=== PATIENT | male | born 2000 | race Caucasian/White ===

== ENCOUNTER 2023-12-07 08:59 | Outpatient (CLI) | payer BC, SELFPAY ==
--- NOTE | ~2023-12-07 | US_ITS ---
Limited Abdominal Sonogram: Real-time sonographic imaging of the right upper quadrant was performed. Clinical History: Abnormal liver transaminase levels Findings: The liver appears echogenic, with no evidence of mass lesion or bile duct dilatation. Main portal vein demonstrates normal direction of flow. The gallbladder is well distended, and appears no rmal with no evidence of gallstone or wall thickening. The common bile duct measures 4 mm. The visua lized pancreas, aorta, and IVC are unremarkable. Impression: Diffuse fatty infiltration of the liver. Reviewed, dictated and finalized at location M. Impression: Diffuse fatty infiltration of the liver.
== END 2023-12-07 09:00 | disposition home or self-care (01) ==
LOC: GOSHIMG 09:01
PROVIDERS: PCP Pediatrics; Visit Provider Nurse Practitioner Family
DX: R74.01 Elevation of levels of liver transaminase levels (principal); K76.0 Fatty (change of) liver, not elsewhere classified
CPT/HCPCS: 76705

== ENCOUNTER 2025-02-10 00:08 | Observation (INO) | payer OTHER, SELFPAY ==
[2025-02-10] VITALS (22 sets, daily range): BP systolic 118–157; BP diastolic 59–89; PULSE 85–105; RESP 14–25; TEMP 36.3–37; O2SAT 93–100; BMI 31.4
--- NOTE | ~2025-02-10 | CT_ITS ---
CT abdomen pelvis w con Clinical History: RLQ pain . Comparison: None Technique: Axial images lung bases to symphysis pubis 100 mL Omnipaque 350 Coronal, sagittal reformats CT images acquired with automatic exposure control for dose reduction DLP: 879 mGy-cm Findings: Lung bases: Clear. Visualized heart and pericardium: Unremarkable. Liver: Steatosis. Gallbladder: Unremarkable. Spleen: Unremarkable. Pancreas: Unremarkable. Adrenal glands: Unremarkable. Kidneys: Right kidney- No hydronephrosis. No renal stones. Left kidney- No hydronephrosis. No renal stones. Distal esophagus/stomach: Unremarkable. Small bowel loops: Normal caliber and wall thickness. Colon: Normal caliber and wall thickness. Appendix mildly prominent with minimal surrounding inflammation. Proximal segment submucosal fatty deposition. Nodes: No enlarged nodes. Peritoneum: No ascites. No free air. Urinary bladder: Unremarkable. Prostate: Unremarkable. Bones: No acute bony abnormality. Soft tissues: Unremarkable. Aorta: No aneurysm or dissection. IVC: Unremarkable. Main portal vein/SMV/splenic vein: Patent. IMPRESSION: 1. Suspicious for early acute appendicitis. Reviewed, dictated and finalized at location R. [facility] [employer]GER
--- OUTSIDE RECORDS SUMMARY | 2025-02-10 00:11 | XMS_ITS | Clinical Summary ---
Author Organization [facility] Care Team Providers Care Worm Sorter Name Role Phone Unavailable Primary Care Provider Unavailabl e Social History Tobacco Use Types Packs/Day Years Used Date Smoking Tobacco: Never Assessed Sex and Gender Information Value Date Recorded Sex Assigned at Not on file Legal Sex Male 2:58 PM [employer] Gender Identity Not on file Sexual Orientation Not on file Plan of Treatment Health Maintenance Due Date Last Done Comments Hepatitis C Virus (HCV) Screening 2002 Hepatitis B Immunization (1 of 3 - 19+ 3-dose series) 2021 Influenza Immunization (#1) 10/24/202411/23, 01/04/2019, 11/26/2016 SARS-COV-2 Immunization ( season) 2024 02/07/2021, 06/02/2020, 05/11/2020 Respiratory Syncytial Virus (RSV) Immunization (Adult) (1 - 1-dose 75+ series) 2077 Pneumococcal Immunization Combined Completed 12/08/2003, 2002, 2002, Additional history exists Measles Mumps Rubella (MMR) Immunization Discontinued 06/12/2006, 06/02/2003 Varicella Immunization Discontinued 06/12/2006, 2003 Hepatitis A Immunization Discontinued 03/15/2010, 06/23 DTaP/Tdap/Td Immunization Discontinued 2013, 07/02/2007, 09/18/2003, Additional history exists TdaP Immunization Completed 08/11/2013 Human Papillomavirus (HPV) Immunization Completed 02/27/2014, 10/25/2013, 08/11/2013 Meningococcal Immunization (ACWY) Completed 09/23/2018, 08/11/2013 Meningococcal B Immunization Completed 08/22/2019, 09/23/2018 Rotavirus Immunization Aged Out No lo nger eligible based on patient's age to complete this topic
--- OUTSIDE RECORDS SUMMARY | 2025-02-10 00:11 | XMS_ITS | Data Portability ---
Author Organization [facility] Address [address] [place] [address] Care Team Providers Care Heat Treat Inspector Name Role Phone DAISY BALL Primary Care Provider Unavailab le Assessment No assessment recorded. Plan of Treatment Reminders Order Date Submit Date Provider Last Modified By Organization Details Last Modified Time Details Appointments None recorded. Lab CBC w/ auto diff 2024 025 [email or web address] 0 [facility], [address], [place], [address], 12:05:09 CMP, serum or plasma 2024 025 [email or web address] 0 [facility], [address], [place], [address], 5 12:05:04 lipid panel, serum 2024 025 [email or web address] 0 [facility], [place], [address], 5 12:05:15 vitamin D, 25-hydroxy, total, serum 2024 025 [email or web address] 0 [facility], [place], [address], 12:05:44 TSH + free T4, serum 2024 025 [email or web address] 0 [facility], [place], [address], 5 12:05:38 vitamin B12 + folate, serum or blood 2024 025 [email or web address] 0 [facility], [address], [place], [address], 5 12:05:33 iron + TIBC + ferritin, serum 2024 025 [email or web address] 0 [facility], [address], [place], [address], 5 12:05:26 testosteron e, total, serum 2024 025 [email or web address] 0 [facility], [address], [place], [address], 5 12:05:21 HbA1c (hemoglobin A1c), blood 2024 025 MIRI [facility], [address], [place], [address], 5 12:04:50 Referral gis analyst [facility] [address] [facility] [email or web address] Andres Valentin Jr DPM, [address], [address], [place], [address], 5 15:49:51 Procedures None recorded. Surgeries None recorded. Imaging XR, wrist, 3 or more view [address] [email or web address], [facility] , [address], [place], [address], 5 16:47:24 Medication Orders None recorded. Patient TargetsNo targets recorded. Patient Instructions Encounter Date Encounter Id Patient Instructions Last Modified By Organization Details Last Modified Time 07/13/2023 [id number] A healthy lifestyle: care instructions Not available 07/26/2023 22:31:41 08/01/2024 [id number] A healthy lifestyle: care instructions Not available 08/01/2024 14:26:32 Reason for Referral Carboy Filler Referral for Bila teral plantar fasciitis Referring Physician: Daisy Ball, Internal Medicine, Encounter Date: 08/01/2024 Results Created Date Observation Date Name Description Value Unit Range Abnormal Flag Note LastModifiedBy Organization Detail LastModifiedTime Result Notes None recorded. Problems Name Problem SNOMED Code Status Onset Date Resolution Date Notes Provider Name and Address Organization Details Recorded Time Obesity 485331051 Active 2023 TONY Hood Attn: Emanuel reyes,[address] [place], [place], [address] [place] [address] 2, [facility] 4 22:31:42 Body mass index 30+ - obesity 089253887 Active 2023 TONY Hood Attn: Emanuel reyes,[address] [place], [address] [place] [address], [place] - [facility] 5 00:42:53 Mixed anxiety and depressive disorder 812916463 Active 2023 TONY Hood Attn: Emanuel reyes,[address] [place], [address] [place] [address] 2, [place] - [facility] 4 22:32:17 Attention deficit hyperactivi ty disorder 007767341 Active 2023 TONY Hood Attn: Emanuel reyes,[address] [place], [address] [place] [address] 2, [place] - [facility] 4 22:32:18 Hyperlipide che 22021313 Active 2023 TONY Hood Attn: Emanuel reyes,[address] [place], [address] [place] [address] 2, [place] - [facility] 4 22:32:19 Long-term drug therapy Active 2023 TONY Hood Attn: Emanuel reyes,[address] [place], [address] [place] [address] 2, [place] - [facility] 4 22:32:21 Positive screening for depression on PHQ-9 (Patient Health Questionnai re 9) 9422049208181 00 Active 2024 TONY Hood Attn: Emanuel reyes,[address] [facility], [place], [address], [place] [facility] 5 14:14:40 Obese class I 8045588718883 07 Active 2024 TONY Hood Attn: Accountin g,[address] [facility], [place], [address], [place] [facility] 5 14:14:42 Bilateral plantar fasciitis 6061766787035 9108 Active 2024 TONY Hood Attn: Emanuel g,[address] [facility], [place], [address], [place] - [facility] 5 00:43:38 Fatigue 33788918 Active 2024 TONY Hood Attn: Accountjeana g,[address] [facility], [place], [address], [place] [facility] 5 00:43:56 Dyssomnia 01249846 Active 2024 TONY Hood Attn: Emanuel reyes,[address] [facility], [place], [address], [place] - [facility] 5 00:43:57 Problem Notes None recorded. Medical Equipment None Reported. Allergies No known drug allergies Medications Name Sig Start Date Stop Date Status Note LastModified by Organization Details LastModified Time fluoxetine 40 mg capsule TAKE 1 CAPSULE BY MOUTH ONCE DAILY 08/01 completed Not Available Not Available Not Available clonidine HCl 0.1 mg tablet TAKE 1/2 (ONE-HALF ) TABLET BY MOUTH ONCE DAILY AT NIGHT AT BEDTIME 08/01 completed Not Available Not Available Not Available propranolol 10 mg tablet Take 1 mg by oral route for 30 days. active Not Available Not Available No t Available ketoconazol e 2 % topical cream Apply by topical route for 60 days. active Not Available Not Available No t Available fluoxetine 20 mg capsule TAKE 1 CAPSULE BY MOUTH ONCE DAILY 08/01 completed Not Available Not Available Not Available amoxicillin 875 mg-potassiu m clavulanate 125 mg tablet TAKE 1 TABLET BY MOUTH TWICE DAILY FOR 10 DAYS 08/01 completed Not Available Not Available Not Available methylpheni date ER 27 mg tablet,exte nded release 24 hr Take 1 tablet as needed by oral route for 30 days. 08/01 completed Not Available Not Available Not Available duloxetine 30 mg capsule,del ayed release TAKE 1 CAPSULE BY MOUTH ONCE DAILY IN THE EVENING 07/12 completed Not Available Not Available Not Available lisdexamfet amine 20 mg capsule Take 1 capsule every day by oral route for 30 days. active Not Available Not Available No t Available desvenlafax ine succinate ER 50 mg tablet,exte nded release 24 hr Take 1 tablet by oral route for 30 days. active Not Available Not Available No t Available dexmethylph enidate ER 30 mg capsule,ext ended release [id number]- 50 TAKE 1 CAPSULE BY MOUTH IN THE MORNING 07/12 completed Not Available Not Available Not Available Zyrtec 10 mg capsule Take 2 capsules every day by oral route. active Not Available Not Available No t Available Vitals Date Recorded Body weight Body mass index (BMI) Body height Heart rate Oxygen saturation Systolic And Diastolic Provider Name and Address Organization Details Last Updated DateTime 4 86806.8 8 g 31.5 kg/m2 177.8 cm 77 /min 99 % 140/72 mm[Hg] Marycruz Armstrong MA [facility] 4 16:01:08 Date Recorded Respiratory rate Systolic And Diastolic Provider Name and Address Organization Details Last Updated DateTime 08/01/2024 18 /min 128/90 mm[Hg] TONY Hood Attn: Accounting,[address] [facility], [place], [address], [facility] 08/01/2024 14:24:20 Date Recorded Body weight Body mass index (BMI) Body height Oxygen saturation Heart rate Systolic And Diastolic Provider Name and Address Organization Details Last Updated DateTime 5 697655. 1 g 32 kg/m2 177.8 cm 98 % 122 /min 142/80 mm[Hg] Sergio Pereira [place] 13:59:03 Social History Question Answer Notes LastModified by Organizat ion Details LastModified Time Tobacco Smoking Status Never Smoker Marycruz PRISCILLA Armstrong null, [place] - [facility] 07/13/2023 15:56:48 Do You Have An Advance Directive? No Information n ot available 07/13/2023 Are You Blind Or Do You Have Difficulty Seeing? No Information n ot available 07/13/2023 What Is Your Level Of Caffeine Consumption? None Information not available 07/13/2023 In The 14 Days Before Symptom Onset, Have You Had Close Contact With A Laboratory-confirm ed COVID-19 While That Case Was Ill? No Information n ot available 07/13/2023 In The 14 Days Before Symptom Onset, Have You Had Close Contact With A Person Who Is Under Investigation For COVID-19 While That Person Was Ill? No Information not available 07/13/2023 Have You Been To An Area Known To Be High Risk For COVID-19? No Information not available 07/13/2023 Are You Deaf Or Do You Have Serious Difficulty Hearing? No Information not available 07/13/2023 What Type Of Diet Are You Following? REGULAR Information n ot available 07/13/2023 Are There Any Guns Present In Your Home? No Information not available 07/13/2023 What Was The Date Of Your Most Recent Tobacco Screening? 08/01/2024 [email or web address] Information not available 08/01/2024 What Is Your Relationship Status? Single Information not available 07/13/2023 Do You Use Your Seat Belt Or Car Seat Routinely? Yes Information not available 07/13/2023 Do You Have Smoke And Carbon Monoxide Detectors In Your Home? Yes Information not available 07/13/2023 Do You Use Sunscreen Routinely? Yes Information not available 07/13/2023 Has Tobacco Cessation Counseling Been Provided? No Information not available 07/13/2023 Sex: Male Functional Status Question Answer Note LastModified by Organizat ion Details LastModified Time Do you use any illicit or recreational drugs? No Information not available 07/13/2023 Do you or have you ever used any other forms of tobacco or nicotine? No Information not available 07/13/2023 What is your level of alcohol consumption? None Information not available 07/13/2023 Are you currently employed? No Information not available 07/13/2023 Are you able to care for yourself independently? Yes Information not available 07/13/2023 What is your exercise level? Heavy Information not available 07/13/2023 Mental Status Question Answer Note LastModified by Organization D etails LastModified Time Do you feel stressed (tense, restless, nervous, or anxious, or unable to sleep at night)? [id number] Information not available 07/13/2023 Family History Relationship Description Onset Age of this Age Resolved Age Notes LastModified by Organization Details LastModified Time Father Attention deficit hyperactivit y disorder mebyma Not available 07/12 15:56:25 Medical History Condition Response Depression Y Anxiety Disorder Y Asthma Y Allergies Y High Cholesterol Y Immunizations Vaccine Type Date Status Note Provider Nam e and Address Organization Details Recorded Time polio, unspecified formulation 3 completed Not Available [facility] 08/01/2024 13:49:53 Hib, unspecified formulation 3 completed Not Available [facility] 08/01/2024 13:49:53 Pneumococcal conjugate PCV 13 3 completed Not Available [facility] 08/01/2024 13:49:53 Hep B, unspecified formulation 3 completed Not Available [facility] 08/01/2024 13:49:53 DTaP, unspecified formulation 3 completed Not Available [facility] 08/01/2024 13:49:53 Hib, unspecified formulation 3 completed Not Available [facility] 08/01/2024 13:49:53 DTaP, unspecified formulation 3 completed Not Available [facility] 08/01/2024 13:49:53 Pneumococcal conjugate PCV 13 3 completed Not Available [facility] 08/01/2024 13:49:53 polio, unspecified formulation 3 completed Not Available [facility] 08/01/2024 13:49:53 Hep B, unspecified formulation 3 completed Not Available [facility] 08/01/2024 13:49:53 polio, unspecified formulation 3 completed Not Available [facility] 08/01/2024 13:49:53 DTaP, unspecified formulation 3 completed Not Available [facility] 08/01/2024 13:49:53 Pneumococcal conjugate PCV 13 3 completed Not Available [facility] 08/01/2024 13:49:53 Hep B, unspecified formulation 3 completed Not Available [facility] 08/01/2024 13:49:53 Hib, unspecified formulation 3 completed Not Available [facility] 08/01/2024 13:49:53 varicella 4 completed Not Available [facility] 08/01/2024 13:49:53 MMR 4 completed Not Available [facility] 08/01/2024 13:49:53 DTaP, unspecified formulation 4 completed Not Available [facility] 08/01/2024 13:49:53 Hib, unspecified formulation 4 completed Not Available [facility] 08/01/2024 13:49:53 Pneumococcal conjugate PCV 13 4 completed Not Available [facility] 08/01/2024 13:49:53 varicella 7 completed Not Available [facility] 08/01/2024 13:49:53 MMR 7 completed Not Available [facility] 08/01/2024 13:49:53 DTaP, unspecified formulation 8 completed Not Available [facility] 08/01/2024 13:49:53 polio, unspecified formulation 8 completed Not Available [facility] 08/01/2024 13:49:53 Hep A, unspecified formulation 0 completed Not Available [facility] 08/01/2024 13:49:53 Hep A, unspecified formulation 1 completed Not Available [facility] 08/01/2024 13:49:53 HPV, quadrivalent 4 completed Not Available [facility] 08/01/2024 13:49:53 meningococcal MCV4P 4 completed Not Available [facility] 08/01/2024 13:49:53 Tdap 4 completed Not Available [facility] 08/01/2024 13:49:53 HPV, quadrivalent 4 completed Not Available [facility] 08/01/2024 13:49:53 HPV, quadrivalent 5 completed Not Available [facility] 08/01/2024 13:49:53 Influenza, split virus, quadrivalent, PF 7 completed Not Available [facility] 08/01/2024 13:49:53 meningococcal MCV4P 9 completed Not Available [facility] 08/01/2024 13:49:53 meningococcal B, OMV 9 completed Not Available [facility] 08/01/2024 13:49:53 Influenza, MDCK, quadrivalent, preservative 9 completed Not Available [facility] 08/01/2024 13:49:53 meningococcal B, OMV 0 completed Not Available [facility] 08/01/2024 13:49:53 COVID-19, mRNA, LNP-S, PF, 30 mcg/0.3 mL dose 1 completed Not Available [facility] 08/01/2024 13:49:53 COVID-19, mRNA, LNP-S, PF, 30 mcg/0.3 mL dose 1 completed Not Available [facility] 08/01/2024 13:49:53 Influenza, MDCK, quadrivalent, PF 1 completed Not Available [facility] 08/01/2024 13:49:53 COVID-19, mRNA, LNP-S, PF, 30 mcg/0.3 mL dose 1 completed Not Available [facility] 08/01/2024 13:49:53 Influenza, MDCK, quadrivalent, PF 2 completed Not Available [facility] 08/01/2024 13:49:53 COVID-19, mRNA, LNP-S, bivalent, PF, 30 mcg/0.3 mL dose 3 completed Not Available [facility] 08/01/2024 13:49:53 COVID-19, mRNA, LNP-S, PF, sinai-sucrose, 30 mcg/0.3 mL 3 completed Not Available [facility] 08/01/2024 13:49:53 COVID-19, mRNA, LNP-S, PF, sinai-sucrose, 30 mcg/0.3 mL 4 completed Not Available [facility] 08/01/2024 13:49:53 Influenza, MDCK, trivalent, PF 4 completed Not Available [facility] 08/01/2024 13:49:53 Past Encounters Encounter ID Performer Location Encounter Start Date Encounter Closed Date Diagnosis/Indication Diagnosis SNOMED-CT Code Diagnosis ICD10 Code Diagnosis IMO Codes Diagnosis Note [id number] Alberto Renee MD [facility] [address] [place] [address] 07/13/2023 15:32:06 07/13/2023 17:15:57 Adult health examination 806202330 Z00.01 new wellness exam completed. Mixed anxi ety and depressive disorder 897320730 F41.8 stable on prozac 20mg daily and clonidine 0.1mg qhs Attention deficit hyperactivity disorder 864468074 F90.9 stable with specialist provider. Long-term drug therapy 855810918 Z79.899 Hyperlipidemia 11246043 E78.5 continue dietary and exercise management . Body mass index 30+ - obesity 697372271 Z68.31 bmi 31.5 Obesity 388477665 E66.9 discussed healthy diet, exercise, controllin g carbohydra navid and added sugars in the diet [id number] Alberto Renee MD [facility] [address] [place] [address] 08/01/2024 13:47:07 08/01/2024 17:23:07 Obese class I 8899490336 34595 E66.811 1273995686 discussed healthy diet, exercise, controllin g carbohydra navid and added sugars in the diet Positive s creening for depression on PHQ-9 (Patient Health Questionnaire 9) 6949804514 38770 Z13.31 4870187916 Positive screening today. Patient is on generic Vyvanse, desvenlafa xine, and arnol dupree from Psychiatry Adult heal th examination 209114046 Z00.01 new pt wellness exam completed. Mixed anxi ety and depressive disorder 926213905 F41.8 Treatment as above follows routinely with Psychiatry Attention deficit hyperactivity disorder 003586274 F90.9 stable with specialist provider. Generic Vyvanse 20 mg daily Hyperlipidemia 33600680 E78.5 continue dietary and exercise management . Fasting lipids are due Long-term drug therapy 036244365 Z79.899 CBC and CMP due Bilateral plantar fasciitis 3363591379 8190246 M72.2 [id number] Refer to Podiatry for plantar fasciitis treatment Fatigue 72302721 R53.83 [id number] Full vitamin panel as well as testostero ne iron studies and thyroid ordered for fatigue Body mass index 30+ - obesity 662711816 Z68.32 474636 bmi 32 Dyssomnia 55231895 G47.9 43740 All dysautonom ia question should be discussed with psych N.P. 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 9401 History noted Pain of right wrist 3169 298872 74389 M25.531 505155 Refer for x-ray of the right wrist with wrist discomfort after physical activity Seasonal allergy 9826500 04 J30.2 43439 Chronic issue on Zyrtec 20 mg daily Health Concerns Section Related Observation LastModified by Organization Detai ls LastModified Time None Recorded Concern Status LastModified by Organization Details LastModified Time None Recorded Advance Directives Directive N: Payers Insurance Date Sequence Insurance Name Policy Number Policy Vallecillo Covered Member ID Vallecillo Member ID Guarantor Name 08/01/2024 1 [place] [id number] Judi Jarquin [id number] Srikanth Gary 08/19/2024 1 [facility] ILAYAZ Judi Olivera [id number] Srikanth Gary Notes Date Note Type Note Provider Name and Address Organization Details Recorded Time 07/13/2023 text/html new pt here to establish and have wellness exam.stable ADHD hxstable mixed anxiety and depression on fluoxetine 20mg daily.hx of hyperlipidemia. diet controlled. TONY Hood Attn: Accounting,[address] [place], [address], [facility] 07/26/2023 22:33:10 08/01/2024 text/html Patient follows with psychiatriststable ADHD hxstable mixed anxiety and depression on fluoxetine 20mg daily.hx of hyperlipidemia. diet controlled.Patient complain of bilateral foot and heel painPatient complain of right wrist pain after physical activity TONY Hood Attn: Accounting,[address] [facility], [place], [address], [facility] 08/19/2024 00:45:22
--- OUTSIDE RECORDS SUMMARY | 2025-02-10 00:11 | XMS_ITS | Clinical Summary ---
Author Organization [address] Address [address] [place] [id number] Care Team Providers Care Granite Fabricator Name Role Phone Unknown, Notinfile Primary Care Provider Unavail able Allergies No known active allergies Medications ammonium lactate (AMLACTIN) 12 % cream 09/14/2015 Active escitalopram (LEXAPRO) 5 mg tablet Take 1.5 tablets (7.5 mg total) by mouth daily Active FLUoxetine (PROzac) 20 mg capsule Take 1 capsule (20 mg total) by mouth daily 12/02/2022 Active FLUoxetine (PROzac) 40 mg capsule Take 1 capsule (40 mg total) by mouth daily 12/02/2022 Active methylphenidate CD (METADATE CD) 10 mg CR capsule 09/06/2015 Active desvenlafaxine ER 50 mg 24 hr tablet 05/09/2024 Active propranoloL (INDERAL) 10 mg tablet Take 1 tablet (10 mg total) by mouth 2 (two) times a day 03/08/2024 Active Active Problems Problem Noted Date Diagnosed Date Muscle strain 10/30/2015 Social History Tobacco Use Types Packs/Day Years Used Date Smoking Tobacco: Never Assessed Sex and Gender Information Value Date Recorded Sex Assigned at Not on file 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 Gender Identity Not on file Sexual Orientation Not on file Last Filed Vital Signs Vital Sign Reading Time Taken Comments Blood Pressure 130/90 05/15/2024 8:10 AM CDT Pulse 81 05/15/2024 8:10 AM CDT Temperature 37 C (98.6 F) 05/15/2024 8:10 AM CDT Respiratory Rate 22 05/15/2024 8:10 AM CDT Oxygen Saturation 98% 05/15/2024 8:10 AM CDT Inhaled Oxygen Concentration - - Weight 105.7 kg (233 lb) 05/15/2024 8:10 AM CDT Height 177.8 cm (5' 10) 05/15/2024 8:10 AM CDT Body Mass Index 33.43 05/15/2024 8:10 AM CDT Plan of Treatment Health Maintenance Due Date Last Done Comments Depression Screening 2002 Hepatitis C Screening 2002 Regular Well Visit/Exam 18-64 2020 DTaP/Tdap/Td Vaccine (7 - Td or Tdap) 08/12/2023 08/11/2013, 07/02/2007, 09/18/2003, Additional history exists Covid-19 Vaccine (2024-03 6 season) 2024 12/29/2022, 07/07/2022, 02/07/2021, Additional history exists Influenza Vaccine (#1) 2024 , 12/06/2020, 01/04/2019, Additional history exists Hepatitis B Screening Completed 2002 , 2002, 2002 Pneumococcal vaccine <65 Completed 004, 2002, 2002, Additional history exists Varicella Vaccines Completed 06/12/2006, 06/02/2003 HPV Vaccines Completed 02/27/2014, 03/2013, 08/11/2013 Meningococcal B Vaccine Completed 08/22/2019, 09/[address] [place] [id number] [facility] [employer] [place] [employer] [place] PPO [place] Care Teams Granite Fabricator Relationship Specialty Start Date End Date Unknown, Notinfile PCP - General 03/07/23
--- NOTE | 2025-02-10 00:28 | ED.ABDPAIN ---
HPI - Abdominal Pain General Chief Complaint: Abdominal Pain Stated Complaint: abd pain Time Seen by Provider: 02/10/25 00:22 History of Present Illness HPI narrative: 24-year-old male with no significant pertinent past medical history aside from some fatty liver disease presenting to the emergency depart with right lower quadrant abdominal pain. States that started around 8 or 9 this morning after he was already awake. He describes a dull pressure in his abdomen going towards his right lower quadrant towards his back. Has been going on throughout the day and worsening with spasms. Describes sharp shooting pains occasionally. Nauseousness with no vomiting. No diarrhea but states that he has had some constipation for last 24 hours. No fever chills. No abdominal surgical history. No chest pain difficulty breathing. No previous symptoms resembling today's presentation. Related Data Home Medications ?Medication ?Instructions ?Recorded ?Confirmed ?Last Taken ?Type cetirizine 10 mg capsule (Zyrtec) 10 mg PO DAILY 11/26/23 02/10/25 02/09/25 History lisdexamfetamine 40 mg capsule 40 mg PO DAILY 09/29/24 02/10/25 02/09/25 History (Vyvanse) desvenlafaxine succinate 100 mg 100 mg PO Q24H 02/10/25 02/10/25 02/09/25 History tablet,extended release 24 hr (Pristiq) Allergies Allergy/AdvReac Type Severity Reaction Status Date / Time No Known Allergies Allergy Mild Verified 02/10/25 00:09 Review of Systems Review of Systems: As reviewed above in HPI All systems reviewed & are unremarkable except as noted in HPI and below PMFSH Past Medical History Medical History Obese Elevated LFTs Fatty liver Elevated alkaline phosphatase level Anxiety and depression Social History Social History Smoking status: Never smoker Exam Narrative: GENERAL: Uncomfortable but not in any acute distress HEAD: [Normocephalic, atraumatic.] EYES: [PERRLA and EOMI.] ENT: Nares clear, no rhinorrhea or epistaxis. Mucous membranes moist. NECK: Supple. CHEST: [Clear to auscultation. No respiratory distress.] HEART: [Regular rate and rhythm]. No murmur heard. [Normal peripheral pulses.] ABDOMEN: Soft and nontender but reproducible tenderness to palpation the right lower quadrant focally with light and deep palpation. Pain reproduced with minimal movement of the stretcher. No rigidity. No guarding. EXTREMITIES: Normal range of motion. [No edema.] SKIN: Warm, dry, no rash. NEURO: [No focal deficits]. Alert and oriented [x3.] PSYCH: [Normal mood and affect.] Course Vital Signs Vital signs: Vital Signs Pulse Rate 101 H 02/10/25 00:17 Respiratory Rate 18 02/10/25 00:17 Pulse Oximetry 99 02/10/25 00:17 Oxygen Delivery Room Air 02/10/25 00:17 Pulse Rate 85 02/10/25 06:15 Respiratory Rate 25 H 02/10/25 06:15 Blood Pressure 129/80 02/10/25 06:15 Pulse Oximetry 97 02/10/25 06:15 Oxygen Delivery Room Air 02/10/25 00:17 MDM MDM Narrative Medical decision making narrative: 24-year-old male with no significant pertinent past medical history aside from some fatty liver disease presenting to the emergency depart with right lower quadrant abdominal pain. States that started around 8 or 9 this morning after he was already awake. He describes a dull pressure in his abdomen going towards his right lower quadrant towards his back. Has been going on throughout the day and worsening with spasms. Describes sharp shooting pains occasionally. Nauseousness with no vomiting. No diarrhea but states that he has had some constipation for last 24 hours. No fever chills. No abdominal surgical history. No chest pain difficulty breathing. No previous symptoms resembling today's presentation. Soft and nontender but reproducible tenderness to palpation the right lower quadrant focally with light and deep palpation. Pain reproduced with minimal movement of the stretcher. No rigidity. No guarding. Suspect possibility of appendicitis versus gastroenteritis versus colitis versus constipation. Laboratory studies and a CT scan ordered. Offered pain medications but he declined given that he is not any severe pain at this moment. He was given fluids and Zofran and re-evaluated. CT scan independently reviewed and also interpreted by radiology. Patient has acute appendicitis based on radiology read. Correlate clinically with examination findings. He does not have a leukocytosis as tachycardia resolved. Pain is controlled at this time but he still slightly nauseous. Started on Zosyn at this time and I spoke to Dr. Spencer from General surgery. Patient made NPO at this time for operative interventions. Admitted to surgery. P.r.n. medications scheduled as well as fluids. Discussed the findings and the plan of care with the patient and the family member at bedside. Comfortable with observation admission process. Differential Diagnosis Differential Diagnosis: Suspect possibility of appendicitis versus gastroenteritis versus colitis versus constipation. Lab Data MDM Lab Attestation statement: I personally reviewed the patient's lab results. 02/10/25 00:44 02/10/25 00:44 Labs: Lab Results 02/10/25 02/10/25 Range/Units 00:44 01:28 WBC 8.4 (4.5-10.0) K/mm3 RBC 5.67 (4.6-6.20) M/mm3 Hgb 15.9 (14.0-18.0) g/dL Hct 45.7 (42.0-52.0) % MCV 80.6 (80-100) fl MCH 28.0 (26-34) pg MCHC 34.8 (32-36) g/dl RDW 12.7 (11.5-14.5) % Plt Count 147 L (150-375) k/mm3 MPV 10.3 (7.4-10.4) fl Immature Gran % (Auto) 0.6 H (0-0.5) % Neut % (Auto) 73.1 (45.5-73.1) % Lymph % (Auto) 16.8 L (18.3-44.2) % [place] % (Auto) 8.9 H (2.6-8.5) % Eos % (Auto) 0.4 (0-4.4) % Baso % (Auto) 0.2 (0.2-1.2) % Lymph # (Auto) 1.41 (0.9-3.2) K/mm3 [place] # (Auto) 0.8 H (0.1-0.6) K/mm3 Eos # (Auto) 0.0 (0-0.3) K/mm3 Baso # (Auto) 0.0 (0.0-0.1) K/mm3 Abs Immat Gran (auto) 0.05 H (0.00-0.031) K/mm3 Absolute Neuts (auto) 6.2 (1.3-6.7) K/mm3 Absolute Nucleated RBC 0.000 (0.0-0.012) K/mm3 Nucleated RBC % 0.0 (0.0-0.2) % Sodium 135 L (137-145) mmol/L Potassium 4.1 (3.4-5.0) mmol/L Chloride 99 (98-107) mmol/L Carbon Dioxide 25 (22-30) mmol/L Anion Gap 11 (4-12) mmol/L BUN 15 (9-20) mg/dL Creatinine 1.01 (0.7-1.3) mg/dL Estim Creat Clear Calc 117 ml/min Estimated GFR > 60 (59 - ) Glucose 93 (65-110) mg/dL Calcium 9.5 (8.4-10.2) mg/dL Total Bilirubin 1.0 (0.2-1.3) mg/dL AST 43 (17-59) U/L ALT 95 H (6-50) U/L Alkaline Phosphatase 95 (38-126) U/L Total Protein 8.7 H (6.3-8.2) g/dL Albumin 5.0 (3.5-5.1) g/dL Lipase 73 (23-300) U/L Urine Color Yellow (Yellow) Urine Appearance Clear (Clear) Urine pH 6.5 (5.0-9.0) Ur Specific [place] 1.018 (1.001-1.035) Urine Protein Negative (Negative) mg/dL Urine Glucose (UA) Negative (Negative) mg/dL Urine Ketones Negative (Negative) mg/dL Ur Blood (Man) Negative (Negative) Urine Nitrate Negative (Negative) Urine Bilirubin Negative (Negative) Urine Urobilinogen 0.2 (<2.0) mg/dL Leukocyte Esterase Rfl Negative (Negative) GUERA/UL Imaging Data Attestation: I personally reviewed and interpreted this imaging study as follows: My impression: acute appendicitis Discharge Plan Discharge Clinical Impression: Acute appendicitis Patient Disposition: Still a Patient Condition: Stable Time of Disposition: 06:00
[2025-02-10] MEDS: LACTATED RINGERS 1,000 ML 999 ML IV CONT (00:41)
[2025-02-10] MEDS: ONDANSETRON INJ 4 MG/2 ML VIAL IV PUSH (00:43)
[2025-02-10 00:51] LABS: Hematocrit 45.7 % (42.0-52.0); Hemoglobin 15.9 g/dL (14.0-18.0); Immature Granulocyte Percent A 0.6 % (0-0.5); Lymphocytes Absolute Auto 1.41 K/mm3 (0.9-3.2); Mean Corpuscular HGB Conc 34.8 g/dl (32-36); Mean Corpuscular Hemoglobin 28.0 pg (26-34); Mean Corpuscular Volume 80.6 fl (80-100); Nucleated Red Blood Cells Absolute Auto 0.000 K/mm3 (0.0-0.012); Nucleated Red Blood Cells Perc 0.0 % (0.0-0.2); Platelet Count Result 147 k/mm3 (150-375); Red Blood Count 5.67 M/mm3 (4.6-6.20); White Blood Count 8.4 K/mm3 (4.5-10.0)
--- OUTSIDE RECORDS SUMMARY | 2025-02-10 00:56 | XMS_ITS | Clinical Summary ---
Author Organization [facility] [employer] Address [address] [place] [address] Care Team Providers Care Head Of Measurement & Insights Name Role Phone Asiya Salinas MD Primary Care Provider [phone] Source Comments [facility] [employer],non-owned Affiliates and Associated Physician Practices is amultiple site organization consisting of ambulatory clinics and hospital sitesin [place], [place], [place] and [place]. This disclosure is being madepursuant to the Care Everywhere program and may not contain all information available regarding this patient. Last updated 17.[facility] [employer] Allergies No known active allergies Medications * Be aware that medications may not be up to date on this document. Alwaysverify current medications with the patient. ammonium lactate (LAC-HYDRIN) 12 % cream 09/14/2015 Active methylphenidate CR (METADATE CD) 10 MG capsule 09/06/2015 Activ e escitalopram (LEXAPRO) 5 MG tablet Take 7.5 mg by mouth once daily Active Active Problems Problem Noted Date Diagnosed Date Muscle strain 10/30/2015 Social History Tobacco Use Types Packs/Day Years Used Date Smoking Tobacco: Never Alcohol Use Standard Drinks/Week Comments No 0 (1 standard drink = 0.6 oz pur e alcohol) Sex and Gender Information Value Date Recorded Sex Assigned at Not on file Legal Sex Male 1:22 PM CDT Gender Identity Not on file Sexual Orientation Not on file Last Filed Vital Signs Vital Sign Reading Time Taken Comments Blood Pressure - - Pulse - - Temperature - - Respiratory Rate - - Oxygen Saturation - - Inhaled Oxygen Concentration - - Weight 55.6 kg (122 lb 9.2 oz) 10/30/2015 9:46 A M CDT Height 162 cm (5' 3.78) 10/30/2015 9:46 AM CDT Body Mass Index 21.19 10/30/2015 9:46 AM CDT Plan of Treatment Health Maintenance Due Date Last Done Comments HIV SCREENING 2017 HPV VACCINE (1 - Male 3-dose series) 2017 MENINGOCOCCAL (Group B) VACC INE SHARED DECISION-MAKING (1 of 2 - Standard) 2018 HEPATITIS C SCREENING 05/26/2020 DTAP/TDAP/TD VACCINES (1 - Tdap) 2021 HEPATITIS B VACCINE (1 of 3 - 19+ 3-dose series) 2021 DEPRESSION SCREENING 02/24/2024 COVID-19 VACCINE (1 - 2024-2 6 season) 2024 INFLUENZA VACCINE (#1) 2024 ZOSTER VACCINE (1 of 2) 2052 HIB VACCINE Aged Out No longer eligi ble based on patient's age to complete this topic MENINGOCOCCAL GROUPS A/C/Y/W VACCINE Aged Out No longer eligible b ased on patient's age to complete this topic PNEUMOCOCCAL VACCINE Aged Out No long er eligible based on patient's age to complete this topic Insurance [place] [address] Care Teams Head Of Measurement & Insights Relationship Specialty Start Date End Date Asiya Salinas MD [address] [place] [address] PCP - General Pediatrics 10/30/15
--- OUTSIDE RECORDS SUMMARY | 2025-02-10 00:56 | XMS_ITS | Clinical Summary ---
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
--- OUTSIDE RECORDS SUMMARY | 2025-02-10 00:56 | XMS_ITS | Clinical Summary ---
Author Organization [employer] Address [address] [place] [address] Care Team Providers Care Contract Serviceman Name Role Phone Pcp, No Primary Care Provider Medications No known medications Social History Tobacco Use Types Packs/Day Years Used Date Smoking Tobacco: Never Assessed Sex and Gender Information Value Date Recorded Sex Assigned at Not on file Legal Sex Male 12:36 PM EST Gender Identity Not on file Sexual Orientation Not on file Plan of Treatment Not on file Medical Devices Not on file Insurance [facility] Care Teams Contract Serviceman Relationship Specialty Start Date End Date Pcp, No PCP - General Family Medicine 01/21/20
--- OUTSIDE RECORDS SUMMARY | 2025-02-10 00:57 | XMS_ITS | Clinical Summary ---
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
[2025-02-10 01:03] LABS: Alanine Aminotransferase 95 U/L (6-50); Albumin Level 5.0 g/dL (3.5-5.1); Alkaline Phosphatase 95 U/L (38-126); Anion Gap 11 mmol/L (4-12); Aspartate Amino Transferase 43 U/L (17-59); Bilirubin,Total 1.0 mg/dL (0.2-1.3); Blood Urea Nitrogen 15 mg/dL (9-20); Calcium 9.5 mg/dL (8.4-10.2); Carbon Dioxide 25 mmol/L (22-30); Chloride 99 mmol/L (98-107); Estimated CRCL calculation 117 ml/min; Estimated Glomerular Filt Rate > 60; Glucose 93 mg/dL (65-110); Lipase 73 U/L (23-300); Potassium 4.1 mmol/L (3.4-5.0); Sodium 135 mmol/L (137-145); Total Protein 8.7 g/dL (6.3-8.2)
[2025-02-10 01:33] LABS: Add Urine Microscopic? NO; Appearance Urine Clear (Clear); Glucose Urine UA Negative (Negative); Leukocyte Esterase Ur Negative LEU/UL (Negative); Nitrate Urine Negative (Negative); Specific Grav Ur 1.018 (1.001-1.035)
[2025-02-10] MEDS: PIPERACILLIN/TAZOBACTAM SOD 4.5 GM in SODIUM CHLORIDE 0.9% IV 100 ML 200 ML IVPB (05:53)
[2025-02-10] MEDS: LACTATED RINGERS 1,000 ML 125 ML IV CONT (06:13)
--- NOTE | 2025-02-10 06:15 | WPCEDHO ---
ED Hand Off Checklist All vitals saved:yes IV Site documented:yes All med administrations documented:yes Triage Note Triage Note Pt presents to ED c/o 6/10 lower 02/10/25 00:17 abdominal pain radiating to back, n/v and last BM 24hrs. Allergies No Known Allergies Allergy (Mild, Verified 02/10/25 00:09) Active Medications including assessments/comments Lactated Ringer's (Lr - Lactated Ringers Iv) 1,000 mls @ 125 mls/hr IV CONT .Q8H CIARA Last Admin: 02/10/25 06:13 Dose: 125 mls/hr Documented By: JOVAN Infusion/Titration Document 02/10/25 06:13 JOVAN (Rec: 02/10/25 06:13 JOVAN [id number]) Intake IV Site Peripheral Access Right Antecubital Container Volume 1,000 Waste Amount 0 Dosing Infusion Rate 125 Cumulative Dose Not Applicable Increase/Decrease Started Elapsed Time Elapsed Time ( 0m minutes) Administered/Completed Medications Discontinued Medications Lactated Ringer's (Lr - Lactated Ringers Iv) 1,000 mls @ 999 mls/hr IV CONT .Q1H1M STA Stop: 02/10/25 01:31 Last Infusion: 02/10/25 02:05 Dose: Infused Documented By: Admin: 02/10/25 00:41 Dose: 999 mls/hr Documented By: ENZO Piperacillin Sod/Tazobactam (Sod 4.5 gm/ Sodium Chloride) 100 mls @ 200 mls/hr IVPB ONCE STA Stop: 02/10/25 05:54 Last Admin: 02/10/25 05:53 Dose: 200 mls/hr Documented By: ENZO Ondansetron HCl (Ondansetron Inj 4 Mg/2 Ml Vial) 4 mg IV PUSH ONCE STA Stop: 02/10/25 00:32 Last Admin: 02/10/25 00:43 Dose: 4 mg Documented By: ENZO Interventions/Assessments IV / Saline Lock, Insert Start: 02/10/25 00:27 Freq: STAT Status: Complete Protocol: Document 02/10/25 00:41 ENZO (Rec: 02/10/25 00:41 ENZO [id number]) IV Assessment Peripheral Access Right Antecubital IV Catheter Access Initiated IV Insertion Date 02/10/25 IV Insertion Time 00:41 Catheter Gauge 20 IV Site Assessment WNL IV Care and WNL Maintenance PA: Gastrointestinal Assessment Start: 02/10/25 00:10 Freq: Status: Active Protocol: Document 02/10/25 00:21 EZG (Rec: 02/10/25 00:23 EZG [id number]) GI Assessment Gastrointestinal Constipation,Nausea,Pain Symptoms Description Soft Pattern Constipated Flatus Present Stool Brown Characterisitics Stool Size Scant Nausea/Vomiting Assessment Nausea Frequency Intermittent,Subsided Emesis Frequency None Last Vital Signs Pulse Rate 85 02/10/25 06:15 Respiratory Rate 25 H 02/10/25 06:15 Pulse Oximetry 97 02/10/25 06:15 Blood Pressure 129/80 02/10/25 06:15 Blood Pressure Mean 96 02/10/25 06:15 Oxygen Delivery Room Air 02/10/25 00:17 Weight 95.25 kg 02/10/25 00:17 Last Result - Abnormals Only Plt Count 147 k/mm3 (150-375) L 02/10/25 00:44 Immature Gran % (Auto) 0.6 % (0-0.5) H 02/10/25 00:44 Lymph % (Auto) 16.8 % (18.3-44.2) L 02/10/25 00:44 [place] % (Auto) 8.9 % (2.6-8.5) H 02/10/25 00:44 [place] # (Auto) 0.8 K/mm3 (0.1-0.6) H 02/10/25 00:44 Abs Immat Gran (auto) 0.05 K/mm3 (0.00-0.031) H 02/10/25 00:44 Sodium 135 mmol/L (137-145) L 02/10/25 00:44 ALT 95 U/L (6-50) H 02/10/25 00:44 Total Protein 8.7 g/dL (6.3-8.2) H 02/10/25 00:44 Most Recent Suicide Severity Rating Suicide Severity Rating NO RISK INDICATED 02/10/25 00:17
--- NOTE | 2025-02-10 06:47 | ADMGEN ---
This patient, Srikanth Gary, was admitted to Medical Room 261-01. Patient/family oriented to hospital policies and general routines including ID bracelet, bed and alarms, visiting hours, pain management, procedures, bathroom and other care routines, personal items, smoking policy, room service/diet, and visiting hours. Information on how to activate the Rapid Response Team has been discussed. Patient/Family are encouraged to report perceived risks to care and to ask questions if they do not understand what they are told or what they should do.
--- NOTE | 2025-02-10 10:40 | PM.IMHP2 ---
H&P: HPI History of Present Illness Date/Time: 02/10/25 10:40 Chief Complaint: abdominal pain Narrative: Patient is a 24-year-old male with history of fatty liver disease who presented to the emergency department around midnight with right lower quadrant abdominal pain. He states that with the pain started early in the morning around 8:30 a.m. to his mid abdomen. At this time it was very mild and he went about his day and was able to eat lunch, but the pain continued to increase in severity. He noted some nausea but never had any episodes of emesis. He has been experiencing some constipation, but no diarrhea. Upon arrival to the emergency department, patient was afebrile with a normal white blood cell count. A CT of the abdomen and pelvis was obtained and demonstrated a mildly prominent appendix with minimal surrounding inflammation suspicious for early acute appendicitis. Patient was given a dose of Zosyn and started on IV fluids. Made NPO. Upon my interview this morning, patient complains of mild right lower quadrant pain, although he has not taken any pain medication. Denies any urinary symptoms or blood in his urine. No other systemic symptoms. Last meal was yesterday at lunch. [facility] Past Medical History Medical History Obese Elevated LFTs Fatty liver Elevated alkaline phosphatase level Anxiety and depression Social History Social History Smoking status: Never smoker Alcohol intake: current Drinks per week: 1 Substance use: never Lack of Transportation: No Lack of Food: Never True Current Housing: I Have Housing Concerned About Future Housing: No Difficulty Paying Gas/Electric Bills: No Difficulty Paying for Meds: No Currently Unemployed: No Education: Associate Degree Difficulty w/ Childcare or Family Care: No Spiritual care concerns: No Meds Home Medications and Allergies Home Medications ?Medication ?Instructions ?Recorded ?Confirmed ?Type cetirizine 10 mg capsule (Zyrtec) 10 mg PO DAILY 11/26/23 02/10/25 History lisdexamfetamine 40 mg capsule 40 mg PO DAILY 09/29/24 02/10/25 History (Vyvanse) desvenlafaxine succinate 100 mg 100 mg PO Q24H 02/10/25 02/10/25 History tablet,extended release 24 hr (Pristiq) Allergies Allergy/AdvReac Type Severity Reaction Status Date / Time No Known Allergies Allergy Mild Verified 02/10/25 06:52 Vital Signs Vital Signs - 24 hr 02/10/25 00:17 02/10/25 00:53 02/10/25 01:29 Temperature Pulse Rate 101 H 91 Respiratory Rate 18 14 Blood Pressure 130/76 124/77 Pulse Oximetry 99 99 100 Oxygen Delivery Room Air 02/10/25 01:31 02/10/25 01:45 02/10/25 01:46 Temperature Pulse Rate 94 90 96 Respiratory Rate 22 H 22 H 25 H Blood Pressure 122/65 131/82 Pulse Oximetry 99 99 99 Oxygen Delivery 02/10/25 02:00 02/10/25 02:01 02/10/25 02:30 Temperature Pulse Rate 94 87 94 Respiratory Rate 19 20 18 Blood Pressure 130/78 Pulse Oximetry 100 100 99 Oxygen Delivery 02/10/25 02:31 02/10/25 06:15 02/10/25 06:58 Temperature 98.1 F Pulse Rate 86 85 85 Respiratory Rate 23 H 25 H 18 Blood Pressure 124/75 129/80 132/79 Pulse Oximetry 98 97 98 Oxygen Delivery Exam Const: General: comfortable and no acute distress Eyes: General: appearance normal, both eyes and all related structures Neck: Neck: supple Resp: Effort & Inspection: normal respiratory effort Cardio: Rate: regular rate GI: Inspection: non-distended GI Palp: Yes Soft to palpation and Yes Tenderness to palpation present (GI) ( Right lower quadrant) Skin: General skin exam: normal color and no rashes or lesions noted Extrem: General: normal to inspection Psych: Mental Status: mental status grossly normal Results Labs Labs: Short CBC 02/10/25 Range/Units 00:44 WBC 8.4 (4.5-10.0) K/mm3 Hgb 15.9 (14.0-18.0) g/dL Hct 45.7 (42.0-52.0) % Plt Count 147 L (150-375) k/mm3 [facility] 02/10/25 00:44 Sodium 135 L Potassium 4.1 Chloride 99 Carbon Dioxide 25 BUN 15 Creatinine 1.01 Glucose 93 Calcium 9.5 Liver Function 02/10/25 Range/Units 00:44 Total Bilirubin 1.0 (0.2-1.3) mg/dL AST 43 (17-59) U/L ALT 95 H (6-50) U/L Alkaline Phosphatase 95 (38-126) U/L Albumin 5.0 (3.5-5.1) g/dL Urine 02/10/25 Range/Units 01:28 Urine Color Yellow (Yellow) Urine Appearance Clear (Clear) Urine pH 6.5 (5.0-9.0) Ur Specific [place] 1.018 (1.001-1.035) Urine Protein Negative (Negative) mg/dL Urine Glucose (UA) Negative (Negative) mg/dL Assessment and Plan Assessment and plan (1) Acute appendicitis: Code(s): K35.80 - Unspecified acute appendicitis Status: Acute Assessment and Plan: Patient presented to the emergency department around midnight with right lower quadrant pain that had started earlier yesterday morning around 8:30 a.m. He had nausea but no vomiting. Afebrile. Normal white blood cell count. CT demonstrated early acute appendicitis. discussed risks, benefits, alternatives, recovery of laparoscopic appendectomy with the patient and his mother at bedside. He wishes to proceed with surgery. He is on the OR schedule for 3:00 p.m. today. Keep patient NPO and continue IV antibiotics and fluids. (2) Fatty liver: Code(s): K76.0 - Fatty (change of) liver, not elsewhere classified Status: Acute Plan Discussed patient's case and plan of care with Dr. Estevez.
[2025-02-10] MEDS: PIPERACILLIN/TAZOBACTAM SOD 3.375 GM in SODIUM CHLORIDE 0.9% IV 50 ML 100 ML IVPB (13:00)
[2025-02-10] MEDS: KETOROLAC 15 MG/ML VIAL (*BKC) IV PUSH (13:00)
[2025-02-10] MEDS: ACETAMINOPHEN 500 MG TABLET 1000 MG PO (13:00)
--- NOTE | 2025-02-10 13:03 | WPDHPUPDATE1 ---
History and Physical Update Update Date/Time: 02/10/25 13:03 History and Physical has been reviewed, including an updated exam of the patient. There are NO changes in the patient's condition. Risks, benefits, and alternatives have been discussed and questions answered. Patient agrees to proceed with procedure.
--- NOTE | 2025-02-10 13:35 | SUR.PREOP ---
PT WAS BROUGHT DOWN TO PREOP FOR 1330 CASE TIME. CASE GOT DELAYED AND PUSHED BACK UNTIL 1500. PT AND FAMILY WAS UPDATED JUST NOW AND ARE DISAPPOINTED BUT UNDERSTANDING.
--- NOTE | 2025-02-10 15:57 | SUR.PREOP ---
COLOR MATCHER LISA AND I WENT TO TELL PT AND FAMILY THAT HIS CASE WOULD BE PUSHED BACK ANOTHER HOUR, UNTIL 1700. PT AND FAMILY UNDERSTOOD BUT DISAPPOINTED.
[2025-02-10] MEDS: BUPIVACAINE/EPINEPHRINE 0.5% 50 ML VIAL 30 ML INFILTRATE (18:01)
--- NOTE | 2025-02-10 18:02 | S_PTH ---
PATIENT: Srikanth Gary LOC: [id number] U#:[id number] AGE/SX: 24/M ROOM: 261 RE02/10/[address]: Alyce Estevez MD : 2000 BED: 01 DIS: 02/11/2025 SPEC #: [id number] RECD: 02/13/25 07:21 STATUS: ERIC REGregory #: [id number] LIN: 02/10/25 18:[address]: Alyce Estevez DEPT: [facility] Surgical RECD BY: Julia Crowell ENTERED: 02/13/25 07:22 SP TYPE: Surgical OTHR DR: Daisy Garcia, PA-C Tissues: A - Appendix Procedures: Hematoxylin and Eosin Stain Gross and Microscopic Level 3
--- NOTE | 2025-02-10 18:08 | P.OP_ITS ---
Procedure Note - Detailed Date of Procedure 02/10/25 Pre-op Diagnosis Acute appendicitis Post-op Diagnosis Same Procedure Performed laparoscopic appendectomy Surgeon Alyce Estevez MD Anesthesia General and Local Indications 24 y/o M presenting to ED c acute appendicitis Findings acute appendicitis no evidence of perforation Description of Procedure The patient was taken to the operating room and placed in the supine position. After adequate induction of general anesthesia, the patient was prepped and draped in the normal sterile fashion. A time-out was then done to verify the patient's identity, as well as the procedure being performed. I began by making a 5 mm incision in the infraumbilical region, through this a Veress needle was placed in the peritoneal cavity. CO2 gas was then insufflated and after adequate pneumoperitoneum was achieved the Veress needle was removed. Then placed a 5 mm Optiview trocar under direct visualization into the peritoneal cavity. I then insufflated through this trocar site and the endoscope was placed into the trocar. Under direct visualization, placed 2 further 5 mm suprapubic port as well as an additional 12 mm port in the left lower abdomen. At this point identified the cecum, I retracted the cecum both medially and superiorly allowing me to expose the appendix. The appendix was noted to be very dilated and inflamed especially towards the tip. The appendix was noted to be very adherent to the right lateral sidewall as well as the ileum. I was able to bluntly dissect the appendix from these adhesions. I then was able to locate the base of the appendix with the cecum. I created a window with the [place] dissector between the appendix itself and the mesoappendix. I then transected the mesoappendix with a white vascular staple load. The Endo-LAKISHA was then reloaded with a blue staple load and I transected the base of the appendix. Once the specimen was completely detached, an endo-pouch was placed into the 12 mm port site and the specimen was removed through the endo-pouch. The appendiceal specimen will be sent to pathology for further review. I then copiously irrigated the right lower quadrant. Hemostasis was noted at both st aple lines no other pathology was seen in this area. I then moved the camera to the suprapubic port to check our its port of entry. No iatrogenic injury or other pathology was noted in the upper abdomen. I then closed the 12 mm port site with a Randall code and 0 Vicryl suture under direct visualization. At this point, the abdomen was desufflated and all ports were removed. All port sites were closed with 4 Monocryl subcuticular suture. Dermabond was placed on all wounds. The patient tolerated the procedure well and was extubated in the operating room postop. He will be sent to the recovery room in stable condition. Estimated Blood Loss 10 Drains No Packing No Pathology Yes Complications No immediate complications Condition Stable Disposition PACU [facility] Billing Surgery - Charge Forward: Surgery Billing
[2025-02-10] MEDS: LACTATED RINGERS 1,000 ML 30 ML IV CONT (18:22)
[2025-02-10] MEDS: fentaNYL CITRATE INJ (*CRX) 100 MCG/2 ML VIAL 25 MCG IV PUSH ×6 (18:47→19:38)
[2025-02-10] MEDS: HYDROcodone/acetaminophen (*CRX) 5-325 MG TABLET 1 TAB PO (21:44)
[2025-02-10] MEDS: MORPHINE SULFATE (*CRX) 4 MG/ML INJ 2 MG IV PUSH (23:52)
[2025-02-11] VITALS: BP 160/69; PULSE 104; RESP 20; TEMP 36.5; O2SAT 94
[2025-02-11] MEDS: HYDROcodone/acetaminophen (*CRX) 5-325 MG TABLET 1 TAB PO ×2 (01:41→07:13)
[2025-02-11 04:58] VITALS: BP 129/59; PULSE 96; RESP 18; TEMP 36.7; O2SAT 97
[2025-02-11 08:00] VITALS: BP 130/72; PULSE 84; RESP 16; TEMP 36.4; O2SAT 95
[2025-02-11] MEDS: LORATADINE 10 MG TABLET PO (08:59)
--- NOTE | 2025-02-11 10:27 | P.DS_ITS ---
DS: Admitting Diagnosis Discharge Date 02/11/2025 Admitting Diagnosis acute appendicitis DS: Discharge Diagnosis Discharge Diagnosis (1) Acute appendicitis: Code(s): K35.80 - Unspecified acute appendicitis Status: Acute Assessment and Plan: status post laparoscopic appendectomy, doing well, continue routine postoperative care, home with p.o. analgesia and Colace, follow-up in 2 weeks DS: Summary Hospital Course Reason for hospitalization: acute appendicitis Hospital Course: The patient is a 24-year-old male presenting to the emergency department complaining of severe right lower quadrant abdominal pain. Workup, including imaging, was significant for acute appendicitis. The patient was subsequently admitted to the surgical service and started on IV antibiotics. He was also made NPO. Upon evaluation, the decision was made for urgent appendectomy. The patient was taken to the operating room and laparoscopic appendectomy was performed. Please see full operative report for details. Postoperatively, the patient did well and was returned back to his surgical room on the floor. On postoperative day 1. , the patient was tolerating a diet, he was up and ambulating without issue, his pain was well controlled with p.o. analgesia. He will now be discharged home with routine postoperative care instructions and p.o. analgesia. He will follow up with me in 2 weeks. Status at Discharge Functional status at discharge: independent ambulation Overall status at discharge: patient is progressing back to baseline Time Spent with Patient Time attestation: Total time spent providing and/or coordinating discharge services: Time spent: Less than 30 minutes Exam Const: General: cooperative, comfortable and no acute distress Resp: Auscultation: clear to auscultation bilaterally Cardio: Rate: regular rate Rhythm: regular rhythm GI: Inspection: normal to inspection, distended and incision GI Palp: Yes abdominal tenderness and Yes Soft to palpation DS: Data Data Completed and Pending Pending studies at discharge: Pending at discharge 02/10/25 18:02 Surgical [PTH] Routine Discharge Plan Discharge Attending physician on discharge: Alyce Estevez Consulting providers: Alyce Estevez Discharging Clinician: Alyce Estevez Anticipated Discharge Date/Time: 02/10/25 22:00 Patient Disposition: Home Activity: may shower and as tolerated Diet: as tolerated Wound Care Instructions: incision open to air Discharge Instructions: DISCHARGE INSTRUCTION SHEET FOR HERNIA, GALLBLADDER AND APPENDIX SURGERIES DR. ESTEVEZ PATIENT TO TAKE HOME 1. May shower in 24 hours, no soaking in bath x 2weeks. 2. Call office for: * Wound increasingly painful or bleeding * Vomiting * Fever of greater than 101 degrees 3. If no bowel movement for three days, take 1 oz. (30 ml) Milk of Magnesia or MiraLax 17g 1 to 2 times daily. 4. No heavy lifting > 10-15 pounds x 6 weeks for hernia repairs and 2 weeks for laparoscopic cholecystectomy or appendectomy. 5. No driving for 3 days or while taking narcotic pain medications. 6. Ice to surgical site for 48 hours (30 min on, then 30 min off). 7. Up walking 10-30 minutes three times per day. 8. Resume previous home medications. 9. Follow-up 10-14 days in office for wound check or as previously scheduled. ([phone]) 10. Oral pain medications prescription to be sent to pharmacy. Take Tylenol 500mg every 6 hours and Ibuprofen 600mg every 6 hours for the first 2 days, then as needed. 11. NUTRITION: Start out by drinking fluids and increase your diet as tolerated. If you experience nausea, try dry toast, crackers, and 7-UP. If nausea or vomiting persists, contact your surgeon?s office. 12. Gallbladders-Low Fat Diet for 2 weeks (send care note of low fat diet) 13. Inguinal Hernias-wear scrotal support for 48 hours 14. Abdominal Hernias-if sent home with abdominal binder, wear for the first 2 weeks (may remove to shower or at night to sleep). Revised 02/2020 Patient Instructions: Antibiotic Form Patient Language: [place] Stand Alone Forms: General Discharge Information Follow-up/Referrals: Alyce Estevez MD [Physician, General Surgery] - 2 Weeks Discharge Medications: New hydrocodone-acetaminophen 5-325 mg tablet 1 tablet PO Q6H PRN (Reason: pain) Qty: 20 0RF docusate sodium [Colace] 100 mg capsule 100 mg PO BID Qty: 20 0RF No Action Zyrtec 10 mg capsule 10 mg PO DAILY lisdexamfetamine [Vyvanse] 40 mg capsule 40 mg PO DAILY desvenlafaxine succinate [Pristiq] 100 mg tablet extended release 24 hr 100 mg PO Q24H Date of admission: 02/10/25 05:36 Primary Care Provider: JoseDaisy Admitting Provider: Alyce Estevez Attending physician on admission: Alyce Estevez Condition: Stable
== END 2025-02-11 11:40 | disposition home or self-care (01) ==
LOC: ANHED 05:42 → ANH2MED 06:05
PROVIDERS: Admitting Provider Surgery; Emergency Provider Student in an Organized Health Care Education/Training Program; PCP Physician Assistant; Visit Provider Surgery
PROC: 0DTJ4ZZ Resection of Appendix, Percutaneous Endoscopic Approach (ICD-10-PCS; CPT 44970; principal; 2025-02-10 13:30)
DX: K35.80 Unspecified acute appendicitis (principal); K76.0 Fatty (change of) liver, not elsewhere classified; F41.8 Other specified anxiety disorders
CPT/HCPCS: 44970; 36415; 74177; 80053; 81003; 83690; 85025; 88304; 96361; 96374; 99285; A9270; G0378; J1100; J1885; J2003; J2250; J2270; J2405; J2543; J2704; J3010; J7030; J7120; Q9967